=== PATIENT | male | born 1960 | race Caucasian/White ===

== ENCOUNTER 2018-02-06 20:31 | Observation (INO) | payer BC ==
[~2018-02-06] VITALS: Ht 177.8 cm; Wt 98.6 kg
[~2018-02-06 20:31] MED LIST: CHOLESTEROL MED; LISINOPRIL20 MG PO; SYNTHROID175 MCG PO
[2018-02-06] MEDS ORDERED: ASPIRIN 81 MG CHEW TAB PO STA (20:43)
[2018-02-06 21:07] LABS: BASOPHILS # (AUTO) 0.1 (0.0-0.1); BASOPHILS % 1.3 % (0.0-1.0); EOSINOPHILS # (AUTO) 0.2 (0.0-0.4); EOSINOPHILS % 1.7 % (0.0-6.0); HEMATOCRIT 44.2 % (38.2-49.6); HEMOGLOBIN 16.1 g/dL (14.0-18.0); LYMPHOCYTES # (AUTO) 3.8 (1.0-3.2); LYMPHOCYTES % 38.2 % (18.0-39.1); MEAN CORPUSCULAR HGB CONC 36.4 g/dL (31-35); MEAN CORPUSCULAR VOLUME 85.2 fL (81-99); MONOCYTES # (AUTO) 0.6 (0.2-0.8); MONOCYTES % 6.3 % (4.4-11.3); NEUTROPHILS # (AUTO) 5.2 (2.1-6.9); NEUTROPHILS % 51.9 % (38.7-80.0); PLATELET COUNT 268 x10e3/uL (140-360); RED BLOOD COUNT 5.19 x10e6/uL (4.3-5.7); RED CELL DISTRIBUTION WIDTH 12.4 % (11.7-14.4)
[2018-02-06 21:13] LABS: CLARITY,URINE CLEAR (CLEAR); COLOR,URINE YELLOW (YELLOW); KETONES,URINE NEGATIVE (NEGATIVE); LEUKOCYTE ESTERASE ,URINE NEGATIVE (NEGATIVE); NITRITE,URINE NEGATIVE (NEGATIVE); PROTEIN,URINE DIPSTICK NEGATIVE (NEGATIVE)
[2018-02-06 21:14] LABS: INR 0.99; PARTIAL THROMBOPLASTIN TIME 28.7 seconds (23.8-35.5); PROTHROMBIN TIME 12.3 seconds (11.9-14.5)
[2018-02-06 21:14] LABS: BILIRUBIN,URINE NEGATIVE (NEGATIVE); URINE UROBILINOGEN 0.2 mg/dL (0.2 - 1)
[2018-02-06 21:20] LABS: AMPHETAMINES SCREEN,URINE NEGATIVE (NEGATIVE); BENZODIAZEPINES SCREEN,URINE NEGATIVE (NEGATIVE); MUCUS,URINE RARE (RARE); PHENCYCLIDINE SCREEN,URINE NEGATIVE (NEGATIVE); RBC,URINE 0-5 /HPF (0-5); WBC,URINE (MAN) 0-5 /HPF (0-5)
[2018-02-06 21:24] LABS: ALANINE AMINOTRANSFERASE 59 IU/L (0-55); ALBUMIN 4.3 g/dL (3.5-5.0); ALBUMIN/GLOBULIN RATIO 1.4 (0.8-2.0); ALKALINE PHOSPHATASE 95 IU/L (40-150); ANION GAP 17.6 mmol/L (8-16); BLOOD UREA NITROGEN 17 mg/dL (7-26); BUN/CREATININE RATIO 17 (6-25); CALCIUM 9.7 mg/dL (8.4-10.2); CARBON DIOXIDE 21 mmol/L (22-29); CHLORIDE 103 mmol/L (98-107); CREATINE KINASE 71 IU/L (30-200); CREATININE, SERUM 1.01 mg/dL (0.72-1.25); EST GLOMERULAR FILTRATION RATE > 60 ML/MIN (60-); GLUCOSE 125 mg/dL (74-118); POTASSIUM 3.6 mmol/L (3.5-5.1); SODIUM 138 mmol/L (136-145)
--- NOTE | 2018-02-06 21:45 | Diagnostic Imaging Report ---
CHEST SINGLE (PORTABLE), 02/06/2018 8:43 PM Technique: CHEST SINGLE (PORTABLE) Comparison: None available. Clinical history: Chest pain Findings: See Impression Impression: 1. Prominent cardiomediastinal silhouette, accentuated by portable technique. 2. No edema or consolidation. 3. No effusion or pneumothorax. Signed by: Dr Ewelina Peters MD on 02/06/2018 9:42 PM
[2018-02-06] MEDS ORDERED: ONDANSETRON HCL INJ 2 MG/ML VIAL IV PRN (22:15)
[2018-02-06] MEDS ORDERED: NITROGLYCERIN 0.4 MG SUBL SL PRN (22:15)
[2018-02-06 22:50] VITALS: BP 147/84
[2018-02-06 23:28] VITALS: BP 147/84
[2018-02-06 23:38] VITALS: BP 147/84
[2018-02-07 05:05] LABS: BASOPHILS # (AUTO) 0.1 (0.0-0.1); BASOPHILS % 1.2 % (0.0-1.0); EOSINOPHILS # (AUTO) 0.3 (0.0-0.4); EOSINOPHILS % 3.6 % (0.0-6.0); HEMATOCRIT 42.2 % (38.2-49.6); HEMOGLOBIN 15.1 g/dL (14.0-18.0); LYMPHOCYTES # (AUTO) 3.8 (1.0-3.2); LYMPHOCYTES % 40.8 % (18.0-39.1); MEAN CORPUSCULAR HEMOGLOBIN 31.2 pg (28-32); MEAN CORPUSCULAR HGB CONC 35.8 g/dL (31-35); MEAN CORPUSCULAR VOLUME 87.2 fL (81-99); MONOCYTES # (AUTO) 0.8 (0.2-0.8); MONOCYTES % 8.6 % (4.4-11.3); NEUTROPHILS # (AUTO) 4.2 (2.1-6.9); NEUTROPHILS % 45.3 % (38.7-80.0); PLATELET COUNT 251 x10e3/uL (140-360); RED BLOOD COUNT 4.84 x10e6/uL (4.3-5.7); RED CELL DISTRIBUTION WIDTH 12.5 % (11.7-14.4)
[2018-02-07] MEDS ORDERED: IBUPROFEN 200 MG TAB PO PRN (05:15)
[2018-02-07 05:30] LABS: ANION GAP 14.8 mmol/L (8-16); BLOOD UREA NITROGEN 15 mg/dL (7-26); BUN/CREATININE RATIO 15 (6-25); CALCIUM 9.2 mg/dL (8.4-10.2); CARBON DIOXIDE 24 mmol/L (22-29); CHLORIDE 103 mmol/L (98-107); CHOL/HDL RATIO 4.6 (3.9-4.7); CHOLESTEROL 188 MD/DL (0-199); CREATINE KINASE 60 IU/L (30-200); CREATININE, SERUM 1.01 mg/dL (0.72-1.25); EST GLOMERULAR FILTRATION RATE > 60 ML/MIN (60-); GLUCOSE 133 mg/dL (74-118); HDL CHOLESTEROL 41 MG/DL (40-60); LDL CHOLESTEROL 102 MG/DL (60-130); POTASSIUM 3.8 mmol/L (3.5-5.1); SODIUM 138 mmol/L (136-145); TRIGLYCERIDES 226 MG/DL (0-149)
[2018-02-07] MEDS: LEVOTHYROXINE SODIUM 125 MCG TAB PO SCH (05:38)
[2018-02-07] MEDS: LEVOTHYROXINE SODIUM 50 MCG TAB PO SCH (05:38)
[2018-02-07 07:27] VITALS: BP 129/75
[2018-02-07] MEDS ORDERED: IBUPROFEN 400 MG TAB PO PRN (07:30)
[2018-02-07] MEDS: ASPIRIN 81 MG ENTERIC COATED PO SCH (08:15)
[2018-02-07] MEDS: LISINOPRIL 20 MG TAB PO SCH (08:15)
[2018-02-07] MEDS ORDERED: NON-FORMULARY MEDICATION (Levothyroxine Sodium (Synthroid) 175 MCG) PO SCH (09:00)
[2018-02-07] MEDS: FAMOTIDINE 20 MG/2 ML VIAL IV SCH ×2 (09:35→21:45)
[2018-02-07 10:24] VITALS: BP 129/75
[2018-02-07 11:13] VITALS: BP 142/90
[2018-02-07 13:33] LABS: CREATINE KINASE 52 IU/L (30-200)
[2018-02-07 15:24] VITALS: BP 133/83
[2018-02-07 20:00] VITALS: BP 146/87
[2018-02-07 22:30] VITALS: BP 146/87
[2018-02-08] VITALS (8 sets, daily range): BP systolic 133–143; BP diastolic 77–94
[2018-02-08 05:36] LABS: BASOPHILS # (AUTO) 0.1 (0.0-0.1); BASOPHILS % 1.3 % (0.0-1.0); EOSINOPHILS # (AUTO) 0.3 (0.0-0.4); EOSINOPHILS % 3.2 % (0.0-6.0); HEMATOCRIT 43.5 % (38.2-49.6); HEMOGLOBIN 15.5 g/dL (14.0-18.0); LYMPHOCYTES # (AUTO) 3.6 (1.0-3.2); LYMPHOCYTES % 39.6 % (18.0-39.1); MEAN CORPUSCULAR HEMOGLOBIN 30.6 pg (28-32); MEAN CORPUSCULAR HGB CONC 35.6 g/dL (31-35); MONOCYTES # (AUTO) 0.7 (0.2-0.8); MONOCYTES % 7.7 % (4.4-11.3); NEUTROPHILS # (AUTO) 4.3 (2.1-6.9); NEUTROPHILS % 47.8 % (38.7-80.0); PLATELET COUNT 261 x10e3/uL (140-360); RED BLOOD COUNT 5.06 x10e6/uL (4.3-5.7); RED CELL DISTRIBUTION WIDTH 12.4 % (11.7-14.4)
[2018-02-08 05:50] LABS: INR 1.03; PROTHROMBIN TIME 12.7 seconds (11.9-14.5)
[2018-02-08] MEDS: LEVOTHYROXINE SODIUM 125 MCG TAB PO SCH (05:50)
[2018-02-08] MEDS: LEVOTHYROXINE SODIUM 50 MCG TAB PO SCH (05:50)
[2018-02-08 06:02] LABS: ANION GAP 13.9 mmol/L (8-16); BLOOD UREA NITROGEN 15 mg/dL (7-26); BUN/CREATININE RATIO 15 (6-25); CALCIUM 9.3 mg/dL (8.4-10.2); CARBON DIOXIDE 24 mmol/L (22-29); CHLORIDE 104 mmol/L (98-107); CREATININE, SERUM 1.01 mg/dL (0.72-1.25); EST GLOMERULAR FILTRATION RATE > 60 ML/MIN (60-); GLUCOSE 125 mg/dL (74-118); POTASSIUM 3.9 mmol/L (3.5-5.1); SODIUM 138 mmol/L (136-145)
[2018-02-08] MEDS ORDERED: LIDOCAINE HCL 2% LOCAL 20 ML VIAL ONE (06:44)
[2018-02-08] MEDS ORDERED: IOPAMIDOL 370 MG/ML 200 ML INFUS..BTL INJ ONE (06:44)
[2018-02-08] MEDS ORDERED: HEPARIN SOD/SOD CHLORIDE 2,000 ML ONE (06:44)
[2018-02-08] MEDS ORDERED: METHYLPREDNISOLONE SOD SUCC 125 MG/2ML VIAL ONE (07:19)
[2018-02-08] MEDS ORDERED: SODIUM CHLORIDE 0.9% 1000ML 1,000 ML ONE (07:20)
[2018-02-08] MEDS ORDERED: MIDAZOLAM HCL 2 MG/2 ML VIAL ONE (07:20)
[2018-02-08] MEDS ORDERED: FAMOTIDINE 20 MG/2 ML VIAL IV ONE (07:20)
[2018-02-08] MEDS ORDERED: DIPHENHYDRAMINE HCL INJ 50 MG/ML VIAL ONE (07:20)
[2018-02-08] MEDS ORDERED: FENTANYL CITRATE/PF 100MCG/2 ML INJ ONE (07:21)
[2018-02-08] MEDS ORDERED: ONDANSETRON HCL INJ 2 MG/ML VIAL ONE (08:00)
[2018-02-08] MEDS: FAMOTIDINE 20 MG/2 ML VIAL IV SCH (10:54)
[2018-02-08] MEDS: LISINOPRIL 20 MG TAB PO SCH (10:54)
[2018-02-08] MEDS: ASPIRIN 81 MG ENTERIC COATED PO SCH (10:54)
--- NOTE | 2018-02-08 14:22 | Operative Report ---
DATE OF PROCEDURE: PROCEDURES PERFORMED 1. Left heart catheterization. 2. Selective coronary angiogram. 3. Left ventriculogram. INDICATION: Unstable angina. DESCRIPTION OF PROCEDURE: After informed consent, patient was brought to the cardiac catheterization laboratory and placed on the table. Both groins were painted and draped in a sterile fashion. Lidocaine was injected into the right groin for local anesthesia. Right femoral artery was accessed by Seldinger technique and a 5-[place] sheath was placed in the right femoral artery. Left main artery was cannulated using a JL4, 5-[place] catheter. Coronary angiogram was performed. Images were obtained in multiple views. The right coronary artery was cannulated using a 3DRC, 5-[place] catheter. Coronary angiogram was performed and images obtained in multiple views. LV gram was performed using a pigtail catheter. Patient had a transient episode of nausea, cough and converted to a bundle-branch block and reverted back spontaneously. Patient tolerated the procedure. REPORT LEFT MAIN: Normal caliber and is free of disease. LEFT ANTERIOR DESCENDING: Normal caliber and is free of disease. LEFT CIRCUMFLEX: Normal caliber and free of disease. RIGHT CORONARY ARTERY: Normal caliber and is free of disease. LEFT VENTRICULOGRAM: Normal LV function. Overall ejection fraction is 70%. HEMODYNAMICS: Aortic pressure is 144/76. LV pressure is 150/-8. LVEDP is 12. PLAN: Medical management. Job#: [id number] BRAND[facility]
== END 2018-02-08 17:24 | disposition home or self-care (01) ==
LOC: ER 20:31 → ERHOLD 22:15 → IMCU 22:47
PROVIDERS: ADMIT Internal Medicine; ATTEND Internal Medicine
DX: R07.2 Precordial pain (principal); I10 Essential (primary) hypertension; R51 Headache; K21.9 Gastro-esophageal reflux disease without esophagitis
CPT/HCPCS: 36415 ×3; 71045; 80048 ×2; 80053; 80061; 80307; 81001; 82550 ×2; 82553 ×2; 83735; 83880; 84484 ×2; 85025 ×3; 85610 ×2; 85730; 87086; 93005 ×2; 93458; 99284; G0378 ×3; J1200; J2001; J2250; J2405; J2930; J7030; Q9967